=== PATIENT | male | born 1970 | race Hispanic/Latino ===

== ENCOUNTER 2021-12-14 21:51 | Emergency (ER) | payer OTHER ==
[2021-12-14 22:36] LABS: Protime INR 0.96
[2021-12-14 22:37] LABS: Absolute Lymphocytes (CBC) 2.1 K/uL (0.7-4.9); Hematocrit 40.9 % (39.6-49.0); Lymphocytes % 21.7 % (15.3-44.8); MPV 6.7 fL (7.6-11.3); RBC Red Blood Cell Count 4.48 M/uL (4.33-5.43)
[2021-12-14 23:34] LABS: ALT/SGPT 48 U/L (12-78); AST/SGOT 28 U/L (15-37); Albumin 3.7 g/dL (3.4-5.0); Alkaline Phosphatase 79 U/L (45-117); BUN Blood Urea Nitrogen 12 mg/dL (7-18); Bicarbonate 23 mmol/L (21-32); Bilirubin Direct < 0.1 mg/dL (0-0.2); Bilirubin Total 0.2 mg/dL (0.2-1.0); Glucose Level 121 mg/dL (74-106); Magnesium 2.3 mg/dL (1.8-2.4); NT PRO-BNP 15 pg/mL (<125); Potassium 3.7 mmol/L (3.5-5.1); Protein, Total 6.7 g/dL (6.4-8.2); Sodium Level 140 mmol/L (136-145)
--- NOTE | 2021-12-14 23:48 | ER ---
Nurse's Notes [facility] Name: Neri Bailon Age: 51 yrs Sex: Male : 1970 Arrival Date: 12/14/2021 Time: 21:54 Bed 3 Private MD: Diagnosis: Chest pain, unspecified Presentation: 12/14 22:37 Chief complaint: Patient states: C/O CP that started around 4 or 5 PM. Coronavirus ll3 screen: Vaccine status: Patient reports receiving the 2nd dose of the covid vaccine. At this time, the client does not indicate any symptoms associated with coronavirus-19. Ebola Screen: No symptoms or risks identified at this time. Initial Sepsis Screen: Does the patient meet any 2 criteria? RR > 20 per min. No. Patient's initial sepsis screen is negative. Does the patient have a suspected source of infection? No. Patient's initial sepsis screen is negative. Risk Assessment: Do you want to hurt yourself or someone else? Patient reports no desire to harm self or others. Onset of symptoms was December 14, 2021 at 16:00. 22:37 Method Of Arrival: Ambulatory ll3 22:37 Acuity: KENAN 3 ll3 Triage Assessment: 22:40 General: Appears uncomfortable, Behavior is calm, cooperative. Pain: Complains of pain ll3 in chest Pain currently is 8 out of 10 on a pain scale. Pain began Started around 4 or 5 pm. Neuro: Level of Consciousness is awake, alert, obeys commands, Oriented to person, place, time, situation. Cardiovascular: Reports chest pain, Patient's skin is warm and dry. Respiratory: Respiratory effort is even, unlabored, Respiratory pattern is regular, symmetrical. Derm: Skin is pink, warm \T\ dry. Historical: - Allergies: 22:40 No Known Allergies; ll3 - Home Meds: 22:40 amlodipine 5 mg tab once daily [Active]; losartan-hydrochlorothiazide 100-12.5 mg oral ll3 tab [Active]; - PSHx: 22:40 None; ll3 - Immunization history:: Client reports receiving the 2nd dose of the Covid vaccine. - Social history:: Smoking status: Patient reports the use of cigarette tobacco products, denies chronic smoking, but will smoke occasionally. Screenin:41 Abuse screen: Denies threats or abuse. Nutritional screening: No deficits noted. al4 Tuberculosis screening: No symptoms or risk factors identified. 12/15 00:20 Fall Risk None identified. lp1 Assessment: 12/14 23:40 General: Appears in no apparent distress. comfortable, Behavior is calm, cooperative, al4 patient states his cp started at 1600 while at work. . Pain: Complains of pain in chest Pain does not radiate. Aggravated by increased activity. Neuro: Level of Consciousness is awake, alert, obeys commands, Oriented to person, place, time, situation. Cardiovascular: Capillary refill < 3 seconds Patient's skin is warm and dry. Respiratory: Airway is patent Respiratory effort is unlabored, Respiratory pattern is regular. Musculoskeletal: Circulation, motion, and sensation intact. 12/15 00:10 Reassessment: Patient appears in no apparent distress at this time. Patient is alert, lp1 oriented x 3, equal unlabored respirations, skin warm/dry/pink. Patient reports chest pain 5/10 on pain scale. Vital Signs: 12/14 22:37 BP 137 / 89; Pulse 98; Resp 26; Temp 98.9(O); Pulse Ox 98% on R/A; Weight 104.33 kg ll3 (R); Height 5 ft. 10 in. (177.80 cm) (R); Pain 8/10; 23:42 BP 122 / 80; Pulse 92; Resp 21 S; Pulse Ox 94% on R/A; Pain 6/10; al4 12/15 00:20 BP 121 / 85; Pulse 97; Resp 18; Pulse Ox 98% on R/A; lp1 12/14 22:37 Body Mass Index 33.00 (104.33 kg, 177.80 cm) ll3 ED Course: 12/14 21:54 Patient arrived in ED. ja2 22:02 Kirill Perez NP is PHCP. pm1 22:02 Marvin Gaona MD is Attending Physician. pm1 22:22 Inserted saline lock: 20 gauge in right antecubital area, using aseptic technique. ds4 Blood collected. 22:40 Triage completed. ll3 22:40 Arm band placed on Patient placed in an exam room, on a stretcher, on compliance monitor, ll3 on pulse oximetry. 23:02 XRAY Chest (1 view) In Process Unspecified. EDMS 23:41 Patient maintains SpO2 saturation greater than 95% on room air. al4 23:41 Bed in low position. awake overnight monitor on. Pulse ox on. NIBP on. al4 23:50 Jovani Gaines is Primary Nurse. al4 23:52 No provider procedures requiring assistance completed. lp1 12/15 00:56 IV discontinued, No redness/swelling at site. Pressure dressing applied. lp1 Administered Medications: 00:00 Drug: Ketorolac 30 mg Route: IVP; Site: right antecubital; lp1 00:55 Follow up: Response: No adverse reaction lp1 00:00 Drug: Albuterol - atroVENT (ipratropium) (3:1) (2.5 mg - 0.5 mg) 3 ml Route: Nebulizer; lp1 00:55 Follow up: Response: No adverse reaction lp1 00:00 Drug: Decadron - Dexamethasone 10 mg Route: IVP; Site: right antecubital; lp1 00:55 Follow up: Response: No adverse reaction lp1 Outcome: 12/14 23:47 Discharge ordered by . pm1 12/15 00:56 Discharged to home ambulatory, with significant other. lp1 Condition: good Discharge instructions given to patient, significant other, Instructed on discharge instructions, follow up and referral plans. medication usage, Demonstrated understanding of instructions, follow-up care, medications, Prescriptions given X 3. 00:56 Patient left the ED. lp1 Signatures: Dispatcher [employer] EDMS Kassandra Chandler RN RN lp1 Reno Macias ds4 Kirill Perez NP PLATFORM LOADER pm1 Dori Durbin [place], RN RN ll3 Jovani Gaines al4 Corrections: (The following items were deleted from the chart) 06:21 04 23:40 Pain: Complains of pain in chest Aggravated by increased activity, al4 al4
--- NOTE | 2021-12-14 23:48 | EDPHYS ---
Physician Documentation [facility] Name: Neri Bailon Age: 51 yrs Sex: Male : 1970 Arrival Date: 12/14/2021 Time: 21:54 Bed 3 Private MD: [place] Physician Marvin Gaona HPI: 12/14 22:11 This 51 yrs old Male presents to ER via Ambulatory with complaints of Chest pm1 Pain. 22:11 The patient or guardian reports chest pain that is located primarily in the mid-sternal pm1 area. The pain does not radiate. Associated signs and symptoms: Pertinent positives: pain with deep inspiration , Pertinent negatives:. The chest pain is described as sharp. Duration: The patient or guardian reports a single episode, that is still ongoing. Modifying factors: The symptoms are alleviated by nothing. the symptoms are aggravated by deep breath. The patient has not experienced similar symptoms in the past. The patient has not recently seen a physician. Onset at 4-5 PM today. Historical: - Allergies: 22:40 No Known Allergies; ll3 - Home Meds: 22:40 amlodipine 5 mg tab once daily [Active]; losartan-hydrochlorothiazide 100-12.5 mg oral ll3 tab [Active]; - PSHx: 22:40 None; ll3 - Immunization history:: Client reports receiving the 2nd dose of the Covid vaccine. - Social history:: Smoking status: Patient reports the use of cigarette tobacco products, denies chronic smoking, but will smoke occasionally. ROS: 22:11 Constitutional: Negative for fever, chills, and weight loss. pm1 22:11 Abdomen/GI: Negative for abdominal pain, nausea, vomiting, diarrhea, and constipation, Back: Negative for injury and pain, MS/Extremity: Negative for injury and deformity, Skin: Negative for injury, rash, and discoloration, Neuro: Negative for headache, weakness, numbness, tingling, and seizure. 22:11 Cardiovascular: Positive for chest pain, Negative for edema, palpitations. 22:11 Respiratory: Positive for cough, Negative for shortness of breath. 22:11 All other systems are negative. Exam: 22:11 Constitutional: This is a well developed, well nourished patient who is awake, alert, pm1 and in no acute distress. Head/Face: Normocephalic, atraumatic. Cardiovascular: Regular rate and rhythm with a normal S1 and S2. No gallops, murmurs, or rubs. Normal PMI, no JVD. No pulse deficits. 22:11 Respiratory: Lungs have equal breath sounds bilaterally, clear to auscultation and percussion. No rales, rhonchi or wheezes noted. No increased work of breathing, no retractions or nasal flaring. Back: No spinal tenderness. No costovertebral tenderness. Full range of motion. Skin: Warm, dry with normal turgor. Normal color with no rashes, no lesions, and no evidence of cellulitis. MS/ Extremity: Pulses equal, no cyanosis. Neurovascular intact. Full, normal range of motion. 22:11 Chest/axilla: Palpation: tenderness, that is mild, of the mid-sternal area, that totally reproduces the patient's complaints. 22:11 Neuro: Exam negative for acute changes, Orientation: is normal, Mentation: is normal, Motor: is normal, moves all fours. Vital Signs: 22:37 BP 137 / 89; Pulse 98; Resp 26; Temp 98.9(O); Pulse Ox 98% on R/A; Weight 104.33 kg ll3 (R); Height 5 ft. 10 in. (177.80 cm) (R); Pain 8/10; 23:42 BP 122 / 80; Pulse 92; Resp 21 S; Pulse Ox 94% on R/A; Pain 6/10; al4 12/15 00:20 BP 121 / 85; Pulse 97; Resp 18; Pulse Ox 98% on R/A; lp1 12/14 22:37 Body Mass Index 33.00 (104.33 kg, 177.80 cm) ll3 MDM: 12/14 22:03 Patient medically screened. [facility] 23:45 Data reviewed: vital signs. Data interpreted: Pulse oximetry: on room air is 98 %. pm1 Interpretation: normal. 23:46 Counseling: I had a detailed discussion with the patient and/or guardian regarding: the pm1 historical points, exam findings, and any diagnostic results supporting the discharge/admit diagnosis, lab results, radiology results, the need for outpatient follow up, to return to the emergency department if symptoms worsen or persist or if there are any questions or concerns that arise at home. 12/14 22:10 Order name: Basic Metabolic Panel; Complete Time: 23:44 pm1 12/14 22:10 Order name: CBC with Diff; Complete Time: 23:05 pm1 12/14 22:10 Order name: LFT's; Complete Time: 23:44 pm1 12/14 22:10 Order name: Magnesium; Complete Time: 23:44 pm1 12/14 22:10 Order name: NT PRO-BNP; Complete Time: 23:44 pm1 12/14 22:10 Order name: PT-INR; Complete Time: 22:40 pm1 12/14 22:10 Order name: Troponin HS; Complete Time: 23:44 pm1 12/14 22:10 Order name: XRAY Chest (1 view) pm1 12/14 22:10 Order name: EKG; Complete Time: 22:11 pm1 12/14 22:10 Order name: Cardiac monitoring; Complete Time: 22:37 pm1 12/14 22:10 Order name: EKG - Nurse/Tech; Complete Time: 22:22 pm1 12/14 22:10 Order name: IV Saline Lock; Complete Time: 22:22 pm1 12/14 22:10 Order name: Labs collected and sent; Complete Time: 22:22 pm1 12/14 22:10 Order name: O2 Per Protocol; Complete Time: 22:22 pm1 12/14 22:10 Order name: O2 Sat Monitoring; Complete Time: 22:22 pm1 Administered Medications: 12/15 00:00 Drug: Ketorolac 30 mg Route: IVP; Site: right antecubital; lp1 00:55 Follow up: Response: No adverse reaction lp1 00:00 Drug: Albuterol - atroVENT (ipratropium) (3:1) (2.5 mg - 0.5 mg) 3 ml Route: Nebulizer; lp1 00:55 Follow up: Response: No adverse reaction lp1 00:00 Drug: Decadron - Dexamethasone 10 mg Route: IVP; Site: right antecubital; lp1 00:55 Follow up: Response: No adverse reaction lp1 Disposition Summary: 12/14/21 23:47 Discharge Ordered Location: Home pm1 Problem: new pm1 Symptoms: have improved pm1 Condition: Stable pm1 Diagnosis - Chest pain, unspecified pm1 Followup: pm1 - With: Emergency Department - When: As needed - Reason: Worsening of condition Followup: pm1 - With: Private Physician - When: 2 - 3 days - Reason: Recheck today's complaints, Continuance of care, Re-evaluation by your physician Discharge Instructions: - Discharge Summary Sheet pm1 - Nonspecific Chest Pain, Adult pm1 - Cough, Adult pm1 Forms: - Medication Reconciliation Form pm1 - Thank You Letter pm1 - Antibiotic Education pm1 - Prescription Opioid Use pm1 Prescriptions: - Ventolin HFA 90 mcg/actuation Inhalation HFA aerosol inhaler - inhale 1 puff by INHALATION route every 4 hours As needed; 1 Inhaler; Refills: pm1 0, Product Selection Permitted - Medrol (Angel) 4 mg Oral Tablets, Dose Pack - take 1 tablet by ORAL route as directed - follow package instructions; 1 pm1 packet; Refills: 0, Product Selection Permitted - Guaifenesin AC 10-100 mg/5 mL Oral Liquid - take 10 milliliters by ORAL route every 4 hours As needed; 240 milliliter; pm1 Refills: 0, Product Selection Permitted Addendum: 12/16/2021 07:21 Co-signature as Attending Physician, Marvin Gaona MD I agree with the assessment and c lebalnc plan of care. Signatures: Dispatcher [employer] Marvin Campos MD MD cha Pena, Laura, RN RN lp1 Kirill Perez, F[employer] EMPLOYMENT SPECIALIST pm1 Diandra Franco RN RN ll3 Corrections: (The following items were deleted from the chart) 12/14 22:22 22:11 Chest Single View+[id number].[email or web address].[email or web address] ordered. [facility]
[2021-12-14] MEDS ORDERED: KETOROLAC 30 MG/ML INJ ONE (23:56)
[2021-12-14] MEDS ORDERED: dexAMETHasone 10 MG/ML VIAL ONE (23:58)
[2021-12-14] MEDS ORDERED: IPRATROPIUM BROM 0.5MG/2.5ML ONE (23:59)
[2021-12-14] MEDS ORDERED: ALBUTEROL 2.5 MG/3 ML NEB SOL ONE (23:59)
--- NOTE | 2021-12-15 07:11 | EKG ---
Test Date: 2021-12-14 Test Time: 22:12:52 [place] Hacker: RULA MEASUREMENT RESULTS: Intervals: Rate: 98 WV: 154 QRSD: 84 QT: 342 QTc: 436 [place]: P: 61 WV: 154 QRS: 52 T: 66 INTERPRETIVE STATEMENTS: Normal sinus rhythm Normal ECG No previous ECG available for comparison Electronically Signed On 12-15-21 07:09:29 CDT by Ryan Cano
--- NOTE | 2021-12-15 12:59 | RAD REPORT ---
EXAM DESCRIPTION: RAD - Chest Single View - 12/14/2021 11:00 pm CLINICAL HISTORY: CHEST PAIN. COMPARISON: None. TECHNIQUE: Single view AP chest radiograph(s). FINDINGS: Trace diffuse pulmonary interstitial thickening. Slightly low lung volumes. No infiltrate identified. No pleural effusion. No pneumothorax. Nonenlarged cardiomediastinal silhouette. No signif icant osseous abnormality. IMPRESSION: Trace diffuse pulmonary interstitial thickening. No infiltrate identified. Electronically signed by: Ro Strange MD 12/14/2021 11:14 PM CDT Due to temporary technical issues with the PACS/Fluency reporting system, reports are being signed by the in house radiologist without review as a courtesy to ensure prompt reporting. The interpreting r adiologist is fully responsible for the content of the report.
[2021-12-15 15:29] VITALS: TEMP 98.9
[2021-12-15 15:33] VITALS: BP 121/85; O2SAT 98
== END 2021-12-15 00:56 | disposition home or self-care (01) ==
LOC: ER 21:51
DX: R07.9 Chest pain, unspecified (principal); R05.9 Cough, unspecified; F17.210 Nicotine dependence, cigarettes, uncomplicated
CPT/HCPCS: 93005; 85025; 80048; 36415; 83735; 85610; 80076; 84484; 83880; 71045; 94640; 96375; 96374; 99285; J1100

== ENCOUNTER 2023-05-29 08:13 | Emergency (ER) | payer SELFPAY ==
[2023-05-29] MEDS ORDERED: ASPIRIN 81 MG CHEWABLE TABLET ONE (08:36)
--- NOTE | 2023-05-29 08:39 | RAD REPORT ---
EXAM DESCRIPTION: Ashley Single View05/29/2023 8:29 am CLINICAL HISTORY: Chest pain COMPARISON: December 2022 FINDINGS: The lungs appear clear of acute infiltrate. The heart is normal size IMPRESSION: No acute abnormalities displayed
--- NOTE | 2023-05-29 08:47 | RAD REPORT ---
EXAM DESCRIPTION: CT - Head C Spine Mpr Wo Con - 05/29/2023 8:34 am CLINICAL HISTORY: Numbness COMPARISON: 2019 TECHNIQUE: Computed axial tomography of the head and cervical spine was obtained. Sagittal and coronal reconstruction was performed. All CT scans are performed using dose optimization technique as appropriate and may include automated exposure control or mA/KV adjustment according to patient size. FINDINGS: An intracranial bleed is not seen. The ventricles are normal in caliber. No significant hypodensity within the brain. An extra-axial fluid collection is not noted. Fluid within the visualized sinuses and mastoids is not seen A cervical fracture is not visualized. No dislocation is noted. Slight posterior subluxation C5 on C6 with disc space narrowing and osteophytes. Disc bulge. Moderate narrowing of the left neural foramina. Thecal sac measures 9 millimeters. Disc bulge and osteophytes C6-7. Mild narrowing of the left neural foramina IMPRESSION: No acute intracranial abnormality is seen. A cervical fracture is not visualized. 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
[2023-05-29 08:52] LABS: Absolute Lymphocytes (CBC) 1.9 K/uL (0.7-4.9); Hematocrit 41.8 % (39.6-49.0); Lymphocytes % 29.9 % (15.3-44.8); MCV 91.1 fL (80-100); MPV 6.4 fL (7.6-11.3); Platelets 300 thou/uL (152-406); RBC Red Blood Cell Count 4.59 M/uL (4.33-5.43)
[2023-05-29 08:57] LABS: Protime INR 0.9
[2023-05-29 09:14] LABS: ALT/SGPT 31 U/L (16-61); Alkaline Phosphatase 76 U/L (45-117); BUN Blood Urea Nitrogen 14 mg/dL (7-18); Bicarbonate 25 mEq/L (21-32); Bilirubin Total 0.3 mg/dL (0.2-1.0); Glomerular Filtration Rate 101 ml/min (=/>90); Glucose Level 108 mg/dL (74-106); NT PRO-BNP 18 pg/mL (<125); Protein, Total 6.9 g/dL (6.4-8.2); Sodium Level 137 mEq/L (136-145); Troponin High Sensitivity 7.1 pg/mL (<58.9)
[2023-05-29 09:15] LABS: AST/SGOT 17 U/L (15-37); Bilirubin Direct < 0.1 mg/dL (0-0.2); Bilirubin Indirect, Calculated ND mg/dL (0.2-0.8); Magnesium 2.2 mg/dL (1.6-2.4); Potassium 3.9 mEq/L (3.5-5.1)
--- NOTE | 2023-05-29 09:17 | ER ---
Nurse's Notes [facility] Name: Neri Bailon Age: 52 yrs Sex: Male : 1970 Arrival Date: 05/29/2023 Time: 08:13 Bed 13 Private MD: Diagnosis: Radiculopathy, cervical region;Cervical disc disorder with [id number] Presentation: 05/29 08:25 Chief complaint: Patient states: Left arm numbness and tingling x 1 week. Coronavirus jl7 screen: At this time, the client does not indicate any symptoms associated with coronavirus-19. Ebola Screen: No symptoms or risks identified at this time. Initial Sepsis Screen: Does the patient meet any 2 criteria? No. Patient's initial sepsis screen is negative. Does the patient have a suspected source of infection? No. Patient's initial sepsis screen is negative. Risk Assessment: Do you want to hurt yourself or someone else? Patient reports no desire to harm self or others. Onset of symptoms was May 22, 2023. 08:25 Method Of Arrival: Ambulatory jl7 08:25 Acuity: KENAN 3 jl7 Triage Assessment: 08:26 General: Appears in no apparent distress. uncomfortable, Behavior is calm, cooperative, jl7 appropriate for age. Pain: Complains of pain in left arm Pain currently is 7 out of 10 on a pain scale. Historical: - Allergies: 08:26 No Known Allergies; jl7 - Home Meds: 08:26 amlodipine 5 mg tab once daily [Active]; losartan-hydrochlorothiazide 100-12.5 mg Oral jl7 tab [Active]; - PMHx: 08:26 Hypertensive disorder; jl7 - PSHx: 08:26 hip; jl7 - Immunization history:: Adult Immunizations unknown. - Social history:: Smoking status: Patient reports the use of cigarette tobacco products, denies chronic smoking, but will smoke occasionally. Screenin:56 [facility] ED Fall Risk Assessment (Adult) History of falling in the last 3 months, kc6 including since admission No falls in past 3 months (0 pts) Confusion or Disorientation No (0 pts) Intoxicated or Sedated No (0 pts) Impaired Gait No (0 pts) Mobility Assist Device Used No (0 pt) Altered Elimination No (0 pt) Score/Fall Risk Level 0 - 2 = Low Risk. Abuse screen: Denies threats or abuse. Denies injuries from another. Nutritional screening: No deficits noted. Tuberculosis screening: No symptoms or risk factors identified. Assessment: 08:56 General: Appears in no apparent distress. comfortable, Behavior is calm, cooperative, kc6 appropriate for age. Pain: Complains of pain in left arm Quality of pain is described as tingling, numb. Neuro: Level of Consciousness is awake, alert, obeys commands, Oriented to person, place, time, situation, Appropriate for age. Cardiovascular: Denies chest pain, Heart tones S1 S2 present Capillary refill < 3 seconds Rhythm is sinus rhythm. Respiratory: Airway is patent Trachea midline Respiratory effort is even, unlabored, Respiratory pattern is regular, symmetrical, Denies shortness of breath. GI: No signs and/or symptoms were reported involving the gastrointestinal system. : No signs and/or symptoms were reported regarding the genitourinary system. EENT: No signs and/or symptoms were reported regarding the EENT system. Derm: No signs and/or symptoms reported regarding the dermatologic system. Skin is intact, is healthy with good turgor, Skin is pink, warm \T\ dry. Musculoskeletal: No signs and/or symptoms reported regarding the musculoskeletal system. Circulation, motion, and sensation intact. Capillary refill < 3 seconds, Range of motion: intact in all extremities. Vital Signs: 08:25 BP 134 / 85; Pulse 85; Resp 17; Temp 98.5; Pulse Ox 100% ; Weight 102.06 kg; Height 5 jl7 ft. 10 in. ; Pain 7/10; 09:21 BP 111 / 79; Pulse 84; Resp 16 S; Pulse Ox 96% on R/A; kc6 08:25 Body Mass Index 32.28 (102.06 kg, 177.8 cm) jl7 08:25 Pain Scale: Adult jl7 ED Course: 08:14 Patient arrived in ED. rg4 08:16 Makayla Sarmiento FNP-C is [facility]. snw 08:16 Jakob Puri DO is Attending Physician. snw 08:19 Yokasta Puga, RN is Primary Nurse. kc6 08:26 Triage completed. jl7 08:26 Arm band placed on right wrist. jl7 08:31 XRAY Chest (1 view) In Process Unspecified. EDMS 08:34 CT Head C Spine In Process Unspecified. EDMS 08:45 Inserted saline lock: 20 gauge in right antecubital area, using aseptic technique. kc6 Blood collected. Patient maintains SpO2 saturation greater than 95% on room air. 08:56 Patient has correct armband on for positive identification. Placed in gown. Bed in low kc6 position. Call light in reach. Side rails up X 1. Adult w/ patient. Client placed on continuous cardiac and pulse oximetry monitoring. NIBP monitoring applied. wrapper hands sprayer on. 09:40 No provider procedures requiring assistance completed. IV discontinued, intact, kc6 bleeding controlled, No redness/swelling at site. Pressure dressing applied. Administered Medications: 08:29 Drug: Aspirin PO Chewable Tablet 324 mg PO once; 81 mg tablets x 4 Route: PO; kc6 09:41 Follow up: Response: No adverse reaction kc6 09:21 Drug: Ketorolac IVP 15 mg IVP once Route: IVP; Site: right antecubital; kc6 09:37 Follow up: Response: No adverse reaction; Pain is decreased kc6 09:21 Drug: Diazepam IVP 5 mg IVP once Route: IVP; Site: right antecubital; kc6 09:37 Follow up: Response: No adverse reaction; Pain is decreased; RASS: Alert and Calm (0) kc6 Medication: 09:40 VIS not applicable for this client. kc6 Outcome: 09:17 Discharge ordered by . snw 09:40 Discharged to home ambulatory, with significant other, kc6 09:40 Condition: stable 09:40 Discharge instructions given to patient, Instructed on discharge instructions, follow up and referral plans. medication usage, Demonstrated understanding of instructions, follow-up care, medications, Prescriptions given X 3, 09:40 Patient left the ED. kc6 Signatures: Dispatcher [employer] EDMS Makayla Sarmiento FNP-C FNP-Magda Pierre rg4 Julienne Yin RN RN jl7 Yokasta Puga RN RN kc6
--- NOTE | 2023-05-29 09:17 | EDPHYS ---
Physician Documentation [facility] Name: Neri Bailon Age: 52 yrs Sex: Male : 1970 Arrival Date: 05/29/2023 Time: 08:13 Bed 13 Private MD: ED Physician Jakob Puri HPI: 05/29 09:05 This 52 yrs old Male presents to ER via Ambulatory with complaints of Arm snw Pain, Numbness Of Arm. 09:05 The patient or guardian complains of pain, tenderness, paresthesias. The complaints snw affect the anterior aspect of left shoulder, left bicep and dorsal aspect of left forearm. Historical: - Allergies: 08:26 No Known Allergies; jl7 - Home Meds: 08:26 amlodipine 5 mg tab once daily [Active]; losartan-hydrochlorothiazide 100-12.5 mg Oral jl7 tab [Active]; - PMHx: 08:26 Hypertensive disorder; jl7 - PSHx: 08:26 hip; jl7 - Immunization history:: Adult Immunizations unknown. - Social history:: Smoking status: Patient reports the use of cigarette tobacco products, denies chronic smoking, but will smoke occasionally. ROS: 09:05 Constitutional: Negative for fever, chills, and weight loss, Eyes: Negative for injury, snw pain, redness, and discharge, ENT: Negative for injury, pain, and discharge, Neck: Negative for injury, pain, and swelling, Cardiovascular: Negative for chest pain, palpitations, and edema, Respiratory: Negative for shortness of breath, cough, wheezing, and pleuritic chest pain, Abdomen/GI: Negative for abdominal pain, nausea, vomiting, diarrhea, and constipation, Back: Negative for injury and pain, : Negative for injury, bleeding, discharge, and swelling, Skin: Negative for injury, rash, and discoloration, Neuro: Negative for headache, weakness, numbness, tingling, and seizure, Psych: Negative for depression, anxiety, suicide ideation, homicidal ideation, and hallucinations, 09:05 MS/extremity: Positive for pain, paresthesias, tenderness, of the left arm, Exam: 09:04 Constitutional: This is a well developed, well nourished patient who is awake, alert, snw and in no acute distress. Head/Face: Normocephalic, atraumatic. Eyes: Pupils equal round and reactive to light, extra-ocular motions intact. Lids and lashes normal. Conjunctiva and sclera are non-icteric and not injected. Cornea within normal limits. Periorbital areas with no swelling, redness, or edema. ENT: Nares patent. No nasal discharge, no septal abnormalities noted. Tympanic membranes are normal and external auditory canals are clear. Oropharynx with no redness, swelling, or masses, exudates, or evidence of obstruction, uvula midline. Mucous membranes moist. Neck: Trachea midline, no thyromegaly or masses palpated, and no cervical lymphadenopathy. Supple, full range of motion without nuchal rigidity, or vertebral point tenderness. No Meningismus. + left arm paresthesias and radiculopathy Chest/axilla: Normal chest wall appearance and motion. Nontender with no deformity. No lesions are appreciated. Cardiovascular: Regular rate and rhythm with a normal S1 and S2. No gallops, murmurs, or rubs. Normal PMI, no JVD. No pulse deficits. Respiratory: Lungs have equal breath sounds bilaterally, clear to auscultation and percussion. No rales, rhonchi or wheezes noted. No increased work of breathing, no retractions or nasal flaring. Abdomen/GI: Soft, non-tender, with normal bowel sounds. No distension or tympany. No guarding or rebound. No evidence of tenderness throughout. Back: No spinal tenderness. No costovertebral tenderness. Full range of motion. Skin: Warm, dry with normal turgor. Normal color with no rashes, no lesions, and no evidence of cellulitis. MS/ Extremity: Pulses equal, no cyanosis. Neurovascular intact. Full, normal range of motion. Neuro: Awake and alert, GCS 15, oriented to person, place, time, and situation. Cranial nerves II-XII grossly intact. Motor strength 5/5 in all extremities. Sensory grossly intact. Cerebellar exam normal. Normal gait. Psych: Awake, alert, with orientation to person, place and time. Behavior, mood, and affect are within normal limits. Vital Signs: 08:25 BP 134 / 85; Pulse 85; Resp 17; Temp 98.5; Pulse Ox 100% ; Weight 102.06 kg; Height 5 jl7 ft. 10 in. ; Pain 7/10; 09:21 BP 111 / 79; Pulse 84; Resp 16 S; Pulse Ox 96% on R/A; kc6 08:25 Body Mass Index 32.28 (102.06 kg, 177.8 cm) jl7 08:25 Pain Scale: Adult jl7 MDM: 08:23 Patient medically screened. snw 09:17 Differential diagnosis: contusion, abrasion, tendonitis, cardiac pain. Data reviewed: snw vital signs, nurses notes, lab test result(s), EKG, radiologic studies. I considered the following discharge prescriptions or medication management in the emergency department Medications were administered in the Emergency Department. See MAR. Historians other than the Patient: Spouse/Significant Other: . Counseling: I had a detailed discussion with the patient and/or guardian regarding the historical points, exam findings, and any diagnostic results supporting the discharge/admit diagnosis, the presence of at least one elevated blood pressure reading (>120/80) during this emergency department visit, lab results, radiology results, the need for outpatient follow up, for definitive care, Neurosurgery. Response to treatment: the patient's symptoms have mildly improved after treatment. Special discussion: Based on the history and exam findings, there is no indication for further emergent testing or inpatient evaluation. I discussed with the patient/guardian the need to see the primary care provider for further evaluation of the symptoms. Neurosurgery. 05/29 08:23 Order name: Basic Metabolic Panel; Complete Time: 09:15 snw 05/29 08:23 Order name: CBC with Diff; Complete Time: 08:55 snw 05/29 08:23 Order name: LFT's; Complete Time: :15 snw 05/29 08:23 Order name: Magnesium; Complete Time: 09:15 snw 05/29 08:23 Order name: NT PRO-BNP; Complete Time: 09:15 snw 05/29 08:23 Order name: PT-INR; Complete Time: 09:02 snw 05/29 08:23 Order name: Troponin HS; Complete Time: 09:15 snw 05/29 08:23 Order name: XRAY Chest (1 view); Complete Time: 08:48 snw 05/29 08:23 Order name: CT Head C Spine; Complete Time: 08:48 snw 05/29 08:23 Order name: EKG; Complete Time: 08:23 snw 05/29 08:23 Order name: Cardiac monitoring; Complete Time: 08: snw 05/29 08:23 Order name: EKG - Nurse/Tech; Complete Time: 08:45 snw 05/29 08:23 Order name: IV Saline Lock; Complete Time: 08:45 snw 05/29 08:23 Order name: Labs collected and sent; Complete Time: 08:45 snw 05/29 08:23 Order name: O2 Per Protocol; Complete Time: : snw 05/29 08:23 Order name: O2 Sat Monitoring; Complete Time: 08:23 snw EC:40 Rate is 86 beats/min. Rhythm is regular. QRS Rena Lara is Normal. IL interval is normal. Q snw waves are Present in lead III. T waves are Inverted in leads III, aVR. Clinical impression: NSR w/ Non-specific ST/T Changes. Administered Medications: 08:29 Drug: Aspirin PO Chewable Tablet 324 mg PO once; 81 mg tablets x 4 Route: PO; kc6 09:41 Follow up: Response: No adverse reaction kc6 09:21 Drug: Ketorolac IVP 15 mg IVP once Route: IVP; Site: right antecubital; kc6 09:37 Follow up: Response: No adverse reaction; Pain is decreased kc6 09:21 Drug: Diazepam IVP 5 mg IVP once Route: IVP; Site: right antecubital; kc6 09:37 Follow up: Response: No adverse reaction; Pain is decreased; RASS: Alert and Calm (0) kc6 Disposition: 16:12 I was immediately available on-site in the Emergency Department for consultation in the wv3 care of the patient. Disposition Summary: 05/29/23 09:17 Discharge Ordered Notes: Location: Home snw Condition: Stable snw Diagnosis - Radiculopathy, cervical region snw - Cervical disc disorder with radiculopathy - C5-C6 snw Followup: snw - With: Emergency Department - When: As needed - Reason: Worsening of condition Followup: snw - With: Private Physician - When: 2 - 3 days - Reason: Recheck today's complaints, Continuance of care, Re-evaluation by your physician Discharge Instructions: - Discharge Summary Sheet snw - Cervical Radiculopathy snw - Edema snw - How to Use Cold Therapy snw - Heat Therapy snw - Neck Exercises snw Forms: - Work release form snw - Family Work Release snw - Medication Reconciliation Form snw - Thank You Letter snw - Antibiotic Education snw - Prescription Opioid Use snw - Patient Portal Instructions snw - Leadership Thank You Letter snw Prescriptions: - Mobic 7.5 mg Oral Tablet - take 1 tablet by ORAL route once daily take with food; 20 tablet; Refills: 0, snw Product Selection Permitted - orphenadrine citrate 100 mg Oral Tablet Sustained Release - take 1 tablet by ORAL route 2 times per day As needed; 20 tablet; Refills: 0, snw Product Selection Permitted - Pepcid 20 mg Oral Tablet - take 1 tablet by ORAL route once daily; 20 tablet; Refills: 0, Product snw Selection Permitted Signatures: Dispatcher [employer] EDMakayla Paula, PROVIDER SERVICE REPRESENTATIVE-C PROVIDER SERVICE REPRESENTATIVE-Csnw Julienne Yin, RN RN jl7 Jakob Puri DO DO ms3 Yokasta Puga RN RN kc6
[2023-05-29] MEDS ORDERED: DIAZEPAM 10 MG/2 ML INJ SYRINGE ONE (09:26)
[2023-05-29] MEDS ORDERED: KETOROLAC 30 MG/ML INJ ONE (09:27)
[2023-05-29 10:16] VITALS: TEMP 98.5
[2023-05-29 10:17] VITALS: BP 111/79; O2SAT 96
--- NOTE | 2023-05-31 14:42 | EKG ---
Test Date: 2023-05-29 Test Time: 08:38:13 Communications Analyst: MARGARET MEASUREMENT RESULTS: Intervals: Rate: 86 AR: 142 QRSD: 78 QT: 382 QTc: 457 Prather: P: 57 AR: 142 QRS: 42 T: 14 INTERPRETIVE STATEMENTS: Normal sinus rhythm Normal ECG Compared to ECG 12/23/2022 20:40:01 No significant changes Electronically Signed On 05-31-23 14:34:29 CDT by Moris Marshall
== END 2023-05-29 09:40 | disposition home or self-care (01) ==
LOC: ER 08:13
DX: M54.12 Radiculopathy, cervical region (principal)
CPT/HCPCS: 36415; 70450; 71045; 72125; 80048; 80076; 83735; 83880; 84484; 85025; 85610; 93005; 96374; 96375; 99285; J3360